=== PATIENT | male | born 1960 | race Caucasian/White ===

== ENCOUNTER 2017-11-28 13:18 | Emergency (ER) | payer OTHER, BC ==
--- NOTE | 2017-11-28 13:30 | EDM.PDOC ---
ED HPI GENERAL MEDICAL PROBLEM - General Chief Complaint: Head Injury Stated Complaint: fell and hit head on cement, shoulder pain Time Seen by Provider: 11/28/17 13:29 Source of Information: Reports: Patient - History of Present Illness INITIAL COMMENTS - FREE TEXT/NARRATIVE: HISTORY AND PHYSICAL: History of present illness: [Patient presents after slipping falling he did strike his head on his vehicle, sure and falling to the ground and struck head on cement, patient had a loss of consciousness reported by on workers up to 2 minutes No fever chills or sweats complains of nausea no vomiting as well as headache Secondary complaint of left shoulder pain also due to the fall Review of systems: As per history of present illness and below otherwise all systems reviewed and negative. Past medical history: As per history of present illness and as reviewed below otherwise noncontributory. Surgical history: As per history of present illness and as reviewed below otherwise noncontributory. Social history: No reported history of drug or alcohol abuse. Family history: As per history of present illness and as reviewed below otherwise noncontributory. Physical exam: HEENT: Atraumatic, normocephalic, pupils reactive, negative for conjunctival pallor or scleral icterus, mucous membranes moist, throat clear, neck supple, nontender, trachea midline. Lungs: Clear to auscultation, breath sounds equal bilaterally, chest nontender. Heart: S1S2, regular, negative for clicks, rubs, or JVD. Abdomen: Soft, nondistended, nontender. Negative for masses or hepatosplenomegaly. Negative for costovertebral tenderness. Pelvis: Stable nontender. Genitourinary: Deferred. Rectal: Deferred. Extremities: Atraumatic, negative for cords or calf pain. Neurovascular unremarkable. Neuro: Awake, alert, oriented. Cranial nerves II through XII unremarkable. Cerebellum unremarkable. Motor and sensory unremarkable throughout. Exam nonfocal. Left shoulder tender with movement appears to be pain in the trapezius distribution x-rays negative for very limited exam due to pain neurovascularly intact no association with head movement Diagnostics: [Head CT no contrast Cervical spine no contrast Left shoulder complete CBC INR ] Therapeutics: [Toradol 60 iv Zofran 8 mg IV ] Impression: [Concussion] with loss of consciousness left shoulder pain Definitive disposition and diagnosis as appropriate pending reevaluation and review of above. Left Shoulder Pain Score (Numeric/FACES): 8 Occipital Headache Pain Score (Numeric/FACES): 8 Neck Pain Score (Numeric/FACES): 8 - Related Data Allergies Allergy/AdvReac Type Severity Reaction Status Date / Time No Known Allergies Allergy Verified 11/28/17 13:32 Home Meds: Home Meds Gabapentin [Neurontin] 300 mg PO BID 11/28/17 [History] Hydrocortisone [Hydrocortisone 2.5% Crm] 1 dose TOP TID 11/28/17 [History] Levothyroxine Sodium [Synthroid] 150 mcg PO DAILY 11/28/17 [History] Propranolol [Inderal LA] 120 mg PO DAILY 11/28/17 [History] atorvaSTATin [Lipitor] 10 mg PO BEDTIME 11/28/17 [History] ED ROS GENERAL - Review of Systems Review Of Systems: ROS reveals no pertinent complaints other than HPI. ED EXAM, HEAD INJURY - Physical Exam Exam: See Below Course - Vital Signs Last Recorded V/S: Last Vital Signs Temp 98.0 F 11/28/17 13:26 Pulse 57 L 11/28/17 14:59 Resp 18 11/28/17 14:59 BP 117/64 11/28/17 14:59 Pulse Ox 94 L 11/28/17 14:59 - Orders/Labs/Meds Orders: Active Orders 24 hr Category Date Time Status Orphenadrine [Norflex] Med 11/28/17 15:00 Active 60 mg IV Q12H Medication Orders Orphenadrine Citrate (Norflex) 60 mg IV Q12H CHETNA Labs: Laboratory Tests 11/28/17 11/28/17 Range/Units 13:50 13:50 WBC 7.65 (4.0-11.0) K/uL RBC 4.57 (4.50-5.90) M/uL Hgb 15.6 (13.0-17.0) g/dL Hct 44.3 (38.0-50.0) % MCV 96.9 (80.0-98.0) fL MCH 34.1 H (27.0-32.0) pg MCHC 35.2 (31.0-37.0) g/dL RDW Std Deviation 48.5 (28.0-62.0) fl RDW Coeff of Abby 14 (11.0-15.0) % Plt Count 179 (150-400) K/uL MPV 11.20 (7.40-12.00) fL Neut % (Auto) 72.4 (48.0-80.0) % Lymph % (Auto) 16.5 (16.0-40.0) % Russell % (Auto) 7.5 (0.0-15.0) % Eos % (Auto) 3.3 (0.0-7.0) % Baso % (Auto) 0.3 (0.0-1.5) % Neut # (Auto) 5.6 (1.4-5.7) K/uL Lymph # (Auto) 1.3 (0.6-2.4) K/uL Russell # (Auto) 0.6 (0.0-0.8) K/uL Eos # (Auto) 0.3 (0.0-0.7) K/uL Baso # (Auto) 0.0 (0.0-0.1) K/uL Nucleated RBC % 0.0 /100WBC Nucleated RBCs # 0 K/uL INR 1.03 Meds: Medications Generic Name Dose Route Start Last Admin Trade Name Freq PRN Reason Stop Dose Admin Orphenadrine Citrate 60 mg 11/28/17 15:00 Norflex IV Q12H CHETNA Discontinued Medications Generic Name Dose Route Start Last Admin Trade Name Freq PRN Reason Stop Dose Admin Ketorolac Tromethamine 30 mg 11/28/17 13:31 11/28/17 13:44 Toradol IVPUSH 11/28/17 13:32 30 mg ONETIME ONE Administration Ondansetron HCl 8 mg 11/28/17 13:31 11/28/17 13:47 Zofran IVPUSH 11/28/17 13:32 8 mg ONETIME ONE Administration Ondansetron HCl Confirm 11/28/17 13:46 11/28/17 13:50 Zofran Administered 11/28/17 13:47 Not Given Dose 4 mg .ROUTE .STK-MED ONE Departure - Departure Time of Disposition: 15:11 Disposition: Home, Self-Care 01 Condition: Good Clinical Impression: Concussion with less than 1 hour loss of consciousness - Discharge Information Referrals: Eric Parsons MD [Primary Care Provider] - Forms: ED Department Discharge Additional Instructions: Medication as prescribed Return if symptoms persist or worsen or new concerning symptoms develop Follow-up with primary care in 2 weeks Ice 20 minute intervals 3 times daily Ice patches may benefit The following information is given to patients seen in the emergency department who are being discharged to home. This information is to outline your options for follow-up care. We provide all patients seen in our emergency department with a follow-up referral. The need for follow-up, as well as the timing and circumstances, are variable depending upon the specifics of your emergency department visit. If you don't have a primary care physician on staff, we will provide you with a referral. We always advise you to contact your personal physician following an emergency department visit to inform them of the circumstance of the visit and for follow-up with them and/or the need for any referrals to a consulting specialist. The emergency department will also refer you to a specialist when appropriate. This referral assures that you have the opportunity for follow-up care with a specialist. All of these measure are taken in an effort to provide you with optimal care, which includes your follow-up. Under all circumstances we always encourage you to contact your private physician who remains a resource for coordinating your care. When calling for follow-up care, please make the office aware that this follow-up is from your recent emergency room visit. If for any reason you are refused follow-up, please contact the [facility] emergency department at and asked to speak to the emergency department charge nurse. - My Orders Last 24 Hours: My Active Orders 11/28/17 15:00 Orphenadrine [Norflex] 60 mg IV Q12H - Assessment/Plan Last 24 Hours: My Active Orders 11/28/17 15:00 Orphenadrine [Norflex] 60 mg IV Q12H
[2017-11-28] MEDS ORDERED: Ondansetron 4 MG/2 ML SDV IVPUSH ONE (13:31)
[2017-11-28] MEDS ORDERED: Ketorolac 30 MG/ML SDV IVPUSH ONE (13:31)
[2017-11-28] MEDS ORDERED: Ondansetron 4 MG/2 ML SDV ONE (13:46)
--- NOTE | 2017-11-28 14:32 | CT ---
CT brain scan Clinical history: Fall on ice with head strike Comparison: MRI scan July 04, 2014 Findings: The ventricles and sulci are normal. There is no evidence of acute mass edema or hemorrhage or space-occupying abnormality. Given the history of head trauma there is no evidence of fluid withi n the sinuses or the mastoid air cells. No calvarial fracture is identified. Impression: No evidence of acute cranial pathology:
--- NOTE | 2017-11-28 14:33 | CR ---
Left shoulder Medical history: Pain Comparison: None The humeral head articulates normally with the glenoid with no fracture or subluxation or periarticul ar calcification. There is very minimal AC joint osteoarthropathy. Impression: No acute abnormality
--- NOTE | 2017-11-28 14:57 | CT ---
CT scan of the cervical spine Clinical history: Fall on ice with head strike Findings: Bony alignment of the cervical spine is normal throughout with scattered marginal osteophyt es anteriorly but no critical central canal narrowing on a bony basis. The facets all align normally. There is no evidence of C-spine fracture or subluxation. Impression: No significant acute findings. Mild diffuse degenerative spondylosis.
== END 2017-11-28 15:20 | disposition home or self-care (01) ==
LOC: MW.ED 13:18
DX: S06.0X1A Concussion with loss of consciousness of 30 minutes or less, initial encounter (principal); M25.512 Pain in left shoulder; Z79.899 Other long term (current) drug therapy; W01.0XXA Fall on same level from slipping, tripping and stumbling without subsequent striking against object, initial encounter
CPT/HCPCS: 36415; 70450; 72125; 73030; 85025; 85610; 96374; 96375; 99284; J1885; J2360; J2405

== ENCOUNTER 2018-05-09 15:57 | Emergency (ER) | payer BC, OTHER ==
[2018-05-09] MEDS ORDERED: Sodium Chloride 0.9% 10 ML Syringe FLUSH PRN (16:11)
[2018-05-09] MEDS ORDERED: Sodium Chloride 0.9% 2.5 ML Syringe FLUSH PRN (16:11)
[2018-05-09] MEDS ORDERED: Sodium Chloride 0.9% 1,000 ML IV SCH (16:15)
--- NOTE | 2018-05-09 16:18 | EDM.PDOC ---
ED HPI GENERAL MEDICAL PROBLEM - General Chief Complaint: Chest Pain Stated Complaint: AMB Time Seen by Provider: 05/09/18 16:09 - History of Present Illness INITIAL COMMENTS - FREE TEXT/NARRATIVE: HISTORY AND PHYSICAL: History of present illness: The patient is a 58-year-old male with a history of hypertension high cholesterol chronic headaches and neuropathy and hypothyroidism who presents via EMS after having a syncopal event while at his job. According to the patient he just didn't feel well all late morning and afternoon and went to lunch with a colleague and said he just didn't feel like himself and he didn't feel good. 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 It is not noted by EMS if he had any seizure activity but on their arrival he was awake alert and complaining mostly of lightheadedness and a headache. He said that the chest discomfort shortness of breath nausea and lightheadedness all came on very quickly and then seemed to surge to his head and now he has no chest pain no shortness of breath no abdominal pain no nausea no vomiting or diarrhea and no neck or back pain and only left shoulder discomfort from his extremities. He doesn't feel weak but he feels somewhat off and confused and states embarrassment with inability to answer simple questions. He says the headache is frontal and is bilateral. He has no neurosensory changes in his left upper extremity. Per the the patient stopped taking his gabapentin the last 1 week because he did not feel it was helping him. She states that he was placed on this for his neuropathy and chronic headaches. He has not Had any upper respiratory symptoms. The patient also tells me that he did spend a lot of time outdoors today dealing with clients and spend some time in a minivan without air conditioning. Review of systems: As per history of present illness and below otherwise all systems reviewed and negative. Past medical history: As per history of present illness and as reviewed below otherwise noncontributory. Surgical history: As per history of present illness and as reviewed below otherwise noncontributory. Social history: No reported history of drug or alcohol abuse. Family history: As per history of present illness and as reviewed below otherwise noncontributory. Physical exam: General: Well-developed well-nourished man who is mildly overweight and moves easily in the ED transfer from cart to bed without assistance. He moves all extremities without any issue except complains of pain at his left shoulder. HEENT: Atraumatic, normocephalic, pupils reactive, no evidence of any facial swelling traumas or defects, EOMs are intact, teeth and bite are intact, negative for conjunctival pallor or scleral icterus, mucous membranes moist, throat clear, neck supple, nontender, trachea midline. There are no scalp swelling or deformities and there are no midline step-offs tenderness defects of the cervical spine Lungs: Clear to auscultation, breath sounds equal bilaterally, chest nontender. There is no ecchymosis erythema crepitus or defects of the chest wall and there is no tenderness Heart: S1S2, regular in rhythm no overt murmurs Abdomen: Soft, nondistended, nontender. Negative for masses or hepatosplenomegaly. Negative for costovertebral tenderness. No rebound or guarding and bowel sounds are hypoactive Pelvis: Stable nontender. No lateral hip tenderness Genitourinary: Deferred. Rectal: Deferred. Extremities: Atraumatic and full range of motion of all extremities with the exception of the left shoulder where there is anterior shoulder tenderness with palpation but there is no visible malalignment defects deformities soft tissue swelling ecchymosis or erythema. All other extremities are nontender and the legs are, negative for cords or calf pain. Neurovascular unremarkable. Neuro: Awake, alert, oriented to person and place but cannot tell me today's date or the year. He states embarrassment that he cannot come up with that answer. Cranial nerves II through XII unremarkable. Cerebellum unremarkable. Motor and sensory unremarkable throughout. Exam nonfocal. Tone is normal throughout and speech is intact Back: There are no midline step-offs in his defects of the thoracic or lumbar spine no posterior rib or posterior pelvis tenderness and no visible evidence of any trauma. Skin: There is no evidence of any overt rashes or lesions turgor is normal and there is no gross diaphoresis Diagnostics: EKG CBC CMP INR TSH troponin UA CT scan of the head chest x-ray and left shoulder x-ray d-dimer CTA of the head and chest Therapeutics: IV O2 monitor IV fluids morphine Zofran The is here at bedside and is providing more history. The patient did have a concussion from head trauma the end of October and says that he was having headaches after that and he does have a history of migraines in the distant past. He follows with Dr. Eric Kitchen and takes the metoprolol for the headaches. She also states that since the concussion he has had some memory loss. Case was discussed at length with and patient at bedside and admission for further evaluation and care of today's events he was offered. Despite my insistence and my concerns he is adamant about going home and the states that there is nothing that is going to change his mind. She says that he has had several concussions in the past and has these headaches and the patient says this headache is coming back. He is aware of my concerns and the need for follow-up. I've advised him if anything changes of swelling that they can return for further care. He accepts my concerns and the risks involved with this. will be with him this evening. Case was discussed with Dr. Haro who had accepted this patient for admission but as the patient is declining he will be notified of this. Impression: Syncopal event, concussion, etiology unclear Definitive disposition and diagnosis as appropriate pending reevaluation and review of above. headache Pain Score (Numeric/FACES): 6 - Related Data Allergies Allergy/AdvReac Type Severity Reaction Status Date / Time No Known Allergies Allergy Verified 11/28/17 13:32 Home Meds: Home Meds Gabapentin [Neurontin] 300 mg PO BID 11/28/17 [History] Levothyroxine Sodium [Synthroid] 150 mcg PO DAILY 11/28/17 [History] Propranolol [Inderal LA] 120 mg PO DAILY 11/28/17 [History] atorvaSTATin [Lipitor] 10 mg PO BEDTIME 11/28/17 [History] Past Medical History Cardiovascular History: Reports: High Cholesterol Neurological History: Reports: Neuropathy, Peripheral Endocrine/Metabolic History: Reports: Hypothyroidism - Infectious Disease History Infectious Disease History: Reports: Chicken Pox, Measles, Mumps Social & Family History - Family History Family Medical History: Noncontributory ED ROS GENERAL - Review of Systems Review Of Systems: ROS reveals no pertinent complaints other than HPI. ED EXAM, GENERAL - Physical Exam Exam: See Below (see dictation) Course - Vital Signs Last Recorded V/S: Last Vital Signs Temp 36.1 C 05/09/18 15:57 Pulse 65 05/09/18 17:50 Resp 18 05/09/18 17:50 BP 111/62 05/09/18 17:50 Pulse Ox 97 05/09/18 17:50 - Orders/Labs/Meds Orders: Active Orders 24 hr Category Date Time Status Blood Glucose Check, Bedside [RC] ONETIME Care 05/09/18 16:10 Active Cardiac Monitoring [RC] . DIRECTED Care 05/09/18 16:10 Active EKG Documentation Completion [RC] STAT Care 05/09/18 16:10 Active Oxygen Therapy, ED [RC] ASDIRECTED Care 05/09/18 16:10 Active Pulse Oximetry [RC] ASDIRECTED Care 05/09/18 16:10 Active Ang Chest [CT] Stat Exams 05/09/18 17:12 Taken CTA Head W & W/O Contrast [Ang Head] [CT] Stat Exams 05/09/18 17:12 Taken UA W/MICROSCOPIC [URIN] Stat Lab 05/09/18 18:28 Ordered Sodium Chloride 0.9% [Normal Saline] 1,000 ml Med 05/09/18 16:15 Active IV ASDIRECTED Sodium Chloride 0.9% [Saline Flush] Med 05/09/18 16:11 Active 10 ml FLUSH ASDIRECTED PRN Sodium Chloride 0.9% [Saline Flush] Med 05/09/18 16:11 Active 2.5 ml FLUSH ASDIRECTED PRN Saline Lock Insert [OM.PC] Stat Oth 05/09/18 16:10 Ordered Medication Orders Sodium Chloride (Normal Saline) 1,000 mls @ 125 mls/hr IV ASDIRECTED CHETNA Last Admin: 05/09/18 16:45 Dose: 125 mls/hr Sodium Chloride (Saline Flush) 10 ml FLUSH ASDIRECTED PRN PRN Reason: Keep Vein Open Sodium Chloride (Saline Flush) 2.5 ml FLUSH ASDIRECTED PRN PRN Reason: Keep Vein Open Labs: Laboratory Tests 05/09/18 05/09/18 05/09/18 Range/Units 16:13 16:13 16:13 WBC 5.85 (4.0-11.0) K/uL RBC 4.02 L (4.50-5.90) M/uL Hgb 14.4 (13.0-17.0) g/dL Hct 41.4 (38.0-50.0) % MCV 103.0 H (80.0-98.0) fL MCH 35.8 H (27.0-32.0) pg MCHC 34.8 (31.0-37.0) g/dL RDW Std Deviation 56.4 (28.0-62.0) fl RDW Coeff of Abby 15 (11.0-15.0) % Plt Count 164 (150-400) K/uL MPV 10.50 (7.40-12.00) fL Neut % (Auto) 65.8 (48.0-80.0) % Lymph % (Auto) 22.9 (16.0-40.0) % [facility] % (Auto) 7.9 (0.0-15.0) % Eos % (Auto) 3.2 (0.0-7.0) % Baso % (Auto) 0.2 (0.0-1.5) % Neut # (Auto) 3.9 (1.4-5.7) K/uL Lymph # (Auto) 1.3 (0.6-2.4) K/uL [facility] # (Auto) 0.5 (0.0-0.8) K/uL Eos # (Auto) 0.2 (0.0-0.7) K/uL Baso # (Auto) 0.0 (0.0-0.1) K/uL Nucleated RBC % 0.0 /100WBC Nucleated RBCs # 0 K/uL INR 1.01 D-Dimer, Quantitative (0.0-0.52) mg/LFEU Sodium 143 (136-148) mmol/L Potassium 4.1 (3.5-5.1) mmol/L Chloride 108 H (98-107) mmol/L Carbon Dioxide 29.1 (21.0-32.0) mmol/L BUN 15 (7.0-18.0) mg/dL Creatinine 1.1 (0.8-1.3) mg/dL Est Cr Clr Drug Dosing 65.25 mL/min Estimated GFR (MDRD) > 60.0 ml/min Glucose 102 (74-106) mg/dL Calcium 8.5 (8.5-10.1) mg/dL Total Bilirubin 0.5 (0.2-1.0) mg/dL AST 26 (15-37) IU/L ALT 33 (14-63) IU/L Alkaline Phosphatase 66 (46-116) U/L Creatine Kinase (26-308) U/L Troponin I < 0.050 (0.000-0.056) ng/mL Total Protein 7.0 (6.4-8.2) g/dL Albumin 3.8 (3.4-5.0) g/dL Globulin 3.2 (2.0-3.5) g/dL Albumin/Globulin Ratio 1.2 L (1.3-2.8) TSH 3rd Generation 0.14 L (0.36-3.74) uIU/mL Urine Color Urine Appearance Urine pH (5.0-8.0) Ur Specific [place] (1.001-1.035) Urine Protein (NEGATIVE) mg/dL Urine Glucose (UA) (NEGATIVE) mg/dL Urine Ketones (NEGATIVE) mg/dL Urine Occult Blood (NEGATIVE) Urine Nitrite (NEGATIVE) Urine Bilirubin (NEGATIVE) Urine Urobilinogen (<2.0) EU/dL Ur Leukocyte Esterase (NEGATIVE) Urine RBC (0-2/HPF) Urine WBC (0-5/HPF) Ur Epithelial Cells (NONE-FEW) Urine Bacteria (NEGATIVE) 05/09/18 05/09/18 05/09/18 Range/Units 16:13 16:13 18:28 WBC (4.0-11.0) K/uL RBC (4.50-5.90) M/uL Hgb (13.0-17.0) g/dL Hct (38.0-50.0) % MCV (80.0-98.0) fL MCH (27.0-32.0) pg MCHC (31.0-37.0) g/dL RDW Std Deviation (28.0-62.0) fl RDW Coeff of Abby (11.0-15.0) % Plt Count (150-400) K/uL MPV (7.40-12.00) fL Neut % (Auto) (48.0-80.0) % Lymph % (Auto) (16.0-40.0) % [facility] % (Auto) (0.0-15.0) % Eos % (Auto) (0.0-7.0) % Baso % (Auto) (0.0-1.5) % Neut # (Auto) (1.4-5.7) K/uL Lymph # (Auto) (0.6-2.4) K/uL [facility] # (Auto) (0.0-0.8) K/uL Eos # (Auto) (0.0-0.7) K/uL Baso # (Auto) (0.0-0.1) K/uL Nucleated RBC % /100WBC Nucleated RBCs # K/uL INR D-Dimer, Quantitative 0.79 H (0.0-0.52) mg/LFEU Sodium (136-148) mmol/L Potassium (3.5-5.1) mmol/L Chloride (98-107) mmol/L Carbon Dioxide (21.0-32.0) mmol/L BUN (7.0-18.0) mg/dL Creatinine (0.8-1.3) mg/dL Est Cr Clr Drug Dosing mL/min Estimated GFR (MDRD) ml/min Glucose (74-106) mg/dL Calcium (8.5-10.1) mg/dL Total Bilirubin (0.2-1.0) mg/dL AST (15-37) IU/L ALT (14-63) IU/L Alkaline Phosphatase (46-116) U/L Creatine Kinase 96 (26-308) U/L Troponin I (0.000-0.056) ng/mL Total Protein (6.4-8.2) g/dL Albumin (3.4-5.0) g/dL Globulin (2.0-3.5) g/dL Albumin/Globulin Ratio (1.3-2.8) TSH 3rd Generation (0.36-3.74) uIU/mL Urine Color YELLOW Urine Appearance CLEAR Urine pH 6.5 (5.0-8.0) Ur Specific [place] 1.010 (1.001-1.035) Urine Protein NEGATIVE (NEGATIVE) mg/dL Urine Glucose (UA) NEGATIVE (NEGATIVE) mg/dL Urine Ketones NEGATIVE (NEGATIVE) mg/dL Urine Occult Blood NEGATIVE (NEGATIVE) Urine Nitrite NEGATIVE (NEGATIVE) Urine Bilirubin NEGATIVE (NEGATIVE) Urine Urobilinogen 1.0 (<2.0) EU/dL Ur Leukocyte Esterase NEGATIVE (NEGATIVE) Urine RBC 0-1 (0-2/HPF) Urine WBC 0-1 (0-5/HPF) Ur Epithelial Cells RARE (NONE-FEW) Urine Bacteria RARE (NEGATIVE) Meds: Medications Generic Name Dose Route Start Last Admin Trade Name Freq PRN Reason Stop Dose Admin Sodium Chloride 1,000 mls @ 125 mls/hr 05/09/18 16:15 05/09/18 16:45 Normal Saline IV 125 mls/hr ASDIRECTED CHETNA Administration Sodium Chloride 10 ml 05/09/18 16:11 Saline Flush FLUSH ASDIRECTED PRN Keep Vein Open Sodium Chloride 2.5 ml 05/09/18 16:11 Saline Flush FLUSH ASDIRECTED PRN Keep Vein Open Discontinued Medications Generic Name Dose Route Start Last Admin Trade Name Freq PRN Reason Stop Dose Admin Iopamidol 100 ml 05/09/18 18:03 05/09/18 18:04 Isovue-370 (76%) IVPUSH 05/09/18 18:04 100 ml ONETIME STA Administration Morphine Sulfate 4 mg 05/09/18 16:43 05/09/18 16:50 Morphine IVPUSH 05/09/18 16:44 4 mg ONETIME ONE Administration Ondansetron HCl 4 mg 05/09/18 16:43 05/09/18 16:50 Zofran IVPUSH 05/09/18 16:44 4 mg ONETIME ONE Administration Departure - Departure Time of Disposition: 19:13 Disposition: Home, Self-Care 01 Condition: Good Clinical Impression: Syncope Qualifiers: Syncope type: unspecified Qualified Code(s): R55 - Syncope and collapse - Discharge Information Referrals: PCP,None [Primary Care Provider] - Forms: ED Department Discharge Additional Instructions: The following information is given to patients seen in the emergency department who are being discharged to home. This information is to outline your options for follow-up care. We provide all patients seen in our emergency department with a follow-up referral. The need for follow-up, as well as the timing and circumstances, are variable depending upon the specifics of your emergency department visit. If you don't have a primary care physician on staff, we will provide you with a referral. We always advise you to contact your personal physician following an emergency department visit to inform them of the circumstance of the visit and for follow-up with them and/or the need for any referrals to a consulting specialist. The emergency department will also refer you to a specialist when appropriate. This referral assures that you have the opportunity for followup care with a specialist. All of these measure are taken in an effort to provide you with optimal care, which includes your followup. Under all circumstances we always encourage you to contact your private physician who remains a resource for coordinating your care. When calling for followup care, please make the office aware that this follow-up is from your recent emergency room visit. If for any reason you are refused follow-up, please contact the [facility] emergency department at and ask to speak to the emergency department charge nurse. [facility] Primary care- Internal Medicine and Family [address] [address] Which hydration and rest. Use [id number] meds for headache and please contact a provider for further care and evaluation in the next 1-2 days. Return to ER as needed and as discussed - My Orders Last 24 Hours: My Active Orders 05/09/18 16:10 Blood Glucose Check, Bedside [RC] ONETIME Cardiac Monitoring [RC] . DIRECTED EKG Documentation Completion [RC] STAT Oxygen Therapy, ED [RC] ASDIRECTED Pulse Oximetry [RC] ASDIRECTED Saline Lock Insert [OM.PC] Stat 05/09/18 16:11 Sodium Chloride 0.9% [Saline Flush] 10 ml FLUSH ASDIRECTED PRN Sodium Chloride 0.9% [Saline Flush] 2.5 ml FLUSH ASDIRECTED PRN 05/09/18 16:15 Sodium Chloride 0.9% [Normal Saline] 1,000 ml IV ASDIRECTED 05/09/18 17:12 Ang Chest [CT] Stat CTA Head W & W/O Contrast [Ang Head] [CT] Stat 05/09/18 18:28 UA W/MICROSCOPIC [URIN] Stat - Assessment/Plan Last 24 Hours: My Active Orders 05/09/18 16:10 Blood Glucose Check, Bedside [RC] ONETIME Cardiac Monitoring [RC] . DIRECTED EKG Documentation Completion [RC] STAT Oxygen Therapy, ED [RC] ASDIRECTED Pulse Oximetry [RC] ASDIRECTED Saline Lock Insert [OM.PC] Stat 05/09/18 16:11 Sodium Chloride 0.9% [Saline Flush] 10 ml FLUSH ASDIRECTED PRN Sodium Chloride 0.9% [Saline Flush] 2.5 ml FLUSH ASDIRECTED PRN 05/09/18 16:15 Sodium Chloride 0.9% [Normal Saline] 1,000 ml IV ASDIRECTED 05/09/18 17:12 Ang Chest [CT] Stat CTA Head W & W/O Contrast [Ang Head] [CT] Stat 05/09/18 18:28 UA W/MICROSCOPIC [URIN] Stat
--- NOTE | 2018-05-09 16:40 | CR ---
EXAMINATION: Portable chest radiograph. HISTORY: Shortness of breath. FINDINGS: The trachea is midline. The cardiomediastinal silhouette is within normal limits. Trace left basilar atelectasis and/or infiltrate. No pleural effusion or pneumothorax. Osseous structures appear unremar kable. IMPRESSION: 1. Trace left basilar atelectasis and/or infiltrate.
[2018-05-09] MEDS ORDERED: Morphine 2 MG/ML Syringe IVPUSH ONE (16:43)
[2018-05-09] MEDS ORDERED: Ondansetron 4 MG/2 ML SDV IVPUSH ONE (16:43)
--- NOTE | 2018-05-09 16:46 | CT ---
EXAMINATION: Non contrast CT head. Coronal and sagittal reformats. HISTORY: Pain FINDINGS: No evidence of intra or extra axial hemorrhage, mass, midline shift, hydrocephalus or edema. No hypoattenuation changes in the major vascular territories to suggest acute infarct. No abnormal intracranial calcifications are detected. No evidence of substantial vascular calcificat ions. Paranasal sinuses and mastoid air cells are well aerated without substantial findings. Pituitary fossa appears unremarkable. Calvarium is intact. No evidence of skull fracture. IMPRESSION: No acute intracranial findings.
--- NOTE | 2018-05-09 16:56 | CR ---
EXAMINATION: Left shoulder HISTORY: Pain COMPARISON: 11/28/2017 TECHNIQUE: 3 views FINDINGS/IMPRESSION: There is no acute osseous abnormality, dislocation, or fracture. Superior manage ment of the scapula appears interrupted, however appears intact on the comparison radiograph and like ly artifactual. Bone mineralization and joint spaces are otherwise preserved.
[2018-05-09 17:39] LABS: CHLORIDE,CL 108 mmol/L (98-107); SODIUM,NA 143 mmol/L (136-148)
[2018-05-09] MEDS ORDERED: Iopamidol 755 Mg/ML 100 ML Bottle IVPUSH STA (18:03)
--- NOTE | 2018-05-10 12:54 | CT ---
EXAM DATE: 05/09/18 PATIENT'S AGE: 58 Patient: MICHAEL GARRETT Facility: [place], [place] Site . Site : 1960 Study: CT Head Angio [id number]/10/2018 6:20:00 PM Ordering Physician: Ike Scherer Final Report: INDICATION: Severe headache. TECHNIQUE: CTA of the head was performed after the administration of intravenous contrast. Multiplanar Maximum Intensity Projections (MIPs) were created on a separate workstation at the request of the referring physician. COMPARISON: None available FINDINGS: Angiographic findings: There is no aneurysm or vascular malformation. There is moderate atherosclerosis of the carotid siphons without significant stenosis. An anterior communicating artery is well visualized and is normal. The anterior and middle cerebral arteries are unremarkable. The vertebral arteries are codominant. The intracranial posterior circulation is unremarkable. Deep cerebral veins and dural venous sinuses are unremarkable. Non-angiographic findings: Ventricles are of normal size and morphology. No mass effect or midline shift is present. The visualized portions of the orbits are normal. The paranasal sinuses and mastoid air cells are clear. There are no suspicious lytic or blastic lesions. IMPRESSION: 1. No cerebral aneurysm 2. No significant stenosis or occlusion of the intracranial arteries Please note that all CT scans at this facility use dose modulation, iterative reconstruction, and/or weight-based dosing when appropriate to reduce radiation dose to as low as reasonably achievable. Dictated by Brooks Curry MD @ May 09 2018 8:47PM (Electronic Signature) Report Signed by Proxy. IVY
--- NOTE | 2018-05-10 12:55 | CT ---
EXAM DATE: 05/09/18 PATIENT'S AGE: 58 Patient: MICHAEL GARRETT Facility: [place], [place] Site . Site : 1960 Study: CT Chest Angio [id number]/10/2018 6:28:24 PM Ordering Physician: Ike Scherer Final Report: INDICATION: Elevated d-dimer TECHNIQUE: CT chest with i.v. contrast using pulmonary angiographic technique. Coronal and sagittal reformats were obtained. CONTRAST: Intravenous COMPARISON: None FINDINGS: Severe degradation of image quality noted due to patient motion artifacts and beam hardening artifact from skin with patient`s arms down by the sides. Cardiovascular: No CT evidence of central pulmonary embolism seen. The 3rd and higher order pulmonary vessels cannot be evaluated due to suboptimal contrast bolus. The heart has an unremarkable appearance and size. Ectasia of the ascending aorta is noted measuring 3.5 cm. Mediastinum: No mass or adenopathy seen. Lungs: Minimal bibasilar ground-glass atelectasis is present in both lower lobes. Pleura and pericardium: No sign of pleural effusion seen. No significant pericardial effusion is present. Chest wall and axilla: No mass or adenopathy seen. Bones: Unremarkable for age. Upper abdomen: Unremarkable. IMPRESSION: 1. No CT evidence of central pulmonary embolism seen. The 3rd and higher order pulmonary vessels cannot be evaluated due to suboptimal contrast bolus, beam hardening artifact, and motion artifacts. The findings and severe limitations of the exam were discussed with Dr. Ramires at 6:53 PM. Dictated by Jerardo Wong MD @ 05/09/2018 6:53:13 PM Please note that all CT scans at this facility use dose modulation, iterative reconstruction, and/or weight-based dosing when appropriate to reduce radiation dose to as low as reasonably achievable. Dictated by: Jerardo Wong MD @ 05/09/2018 18:53:41 (Electronic Signature) Report Signed by Proxy. [facility]
== END 2018-05-09 19:30 | disposition home or self-care (01) ==
LOC: MW.ED 15:57
DX: R55 Syncope and collapse (principal); I10 Essential (primary) hypertension
CPT/HCPCS: 36415; 70450; 70496; 71045; 71275; 73030; 80053; 81001; 82550; 84443; 84484; 85025; 85379; 85610; 93005; 96361; 96374; 96375; 99285; J2270; J2405; J7040; Q9967

== ENCOUNTER 2020-01-14 10:35 | Observation (INO) | payer BC ==
--- NOTE | 2020-01-14 10:42 | EDM.PDOC ---
ED HPI GENERAL MEDICAL PROBLEM - General Chief Complaint: General Stated Complaint: FALL/ HEAD INJURY Time Seen by Provider: 01/14/20 10:35 Source of Information: Reports: Patient, EMS History Limitations: Reports: No Limitations - History of Present Illness INITIAL COMMENTS - FREE TEXT/NARRATIVE: This 59 year old male slipped on ice falling backwards hitting the back of his head. LOC for less than 30 minutes according to the EMT's. He also complains of lower back pain as well as neck pain. He denies any other problems. He states that he is on Aspirin but is not on blood thinners. Onset: Sudden Location: Reports: Head, Back Quality: Reports: Dull head Pain Score (Numeric/FACES): 8 neck Pain Score (Numeric/FACES): 8 low back Pain Score (Numeric/FACES): 8 - Related Data Allergies Allergy/AdvReac Type Severity Reaction Status Date / Time No Known Allergies Allergy Verified 01/14/20 10:40 Home Meds: Home Meds Levothyroxine Sodium [Synthroid] 150 mcg PO DAILY 11/28/17 [History] Propranolol [Inderal LA] 120 mg PO DAILY 11/28/17 [History] atorvaSTATin [Lipitor] 10 mg PO BEDTIME 11/28/17 [History] Aspirin 81 mg PO DAILY 01/14/20 [History] Celecoxib [CeleBREX] 200 mg PO DAILY 01/14/20 [History] Pregabalin [Lyrica] 75 mg PO BID 01/14/20 [History] Past Medical History Cardiovascular History: Reports: High Cholesterol Neurological History: Reports: Neuropathy, Peripheral Endocrine/Metabolic History: Reports: Hypothyroidism - Infectious Disease History Infectious Disease History: Reports: Chicken Pox, Measles, Mumps Social & Family History - Family History Family Medical History: Noncontributory - Caffeine Use Caffeine Use: Reports: Coffee ED ROS GENERAL - Review of Systems Review Of Systems: See Below Constitutional: Reports: No Symptoms HEENT: Reports: No Symptoms Respiratory: Reports: No Symptoms Cardiovascular: Reports: No Symptoms Endocrine: Reports: No Symptoms GI/Abdominal: Reports: No Symptoms : Reports: No Symptoms Musculoskeletal: Reports: No Symptoms Skin: Reports: No Symptoms Neurological: Reports: Headache, Other (back pain in the lower area) ED EXAM, GENERAL - Physical Exam Exam: See Below Exam Limited By: No Limitations General Appearance: Alert, WD/WN, No Apparent Distress Eye Exam: Bilateral Eye: EOMI, Normal Fundi, Normal Inspection, PERRL Ears: Normal External Exam, Normal Canal, Hearing Grossly Normal, Normal TMs Ear Exam: Bilateral Ear: Auricle Normal, Canal Normal, TM normal Nose: Normal Inspection, Normal Mucosa, No Blood Throat/Mouth: Normal Inspection, Normal Lips, Normal Teeth, Normal Gums, Normal Oropharynx, Normal Voice, No Airway Compromise Head: Other (swelling and tenderness noted in the occipital area). No: Facial Swelling, Facial Tenderness, Sinus Tenderness Neck: Normal Inspection, Non-Tender, Other (After CT of the cervical spine was negative, the neck was re-evaluated in ROM is intact) Respiratory/Chest: No Respiratory Distress, Lungs Clear, Normal Breath Sounds, No Accessory Muscle Use, Chest Non-Tender Cardiovascular: Normal Peripheral Pulses, Regular Rate, Rhythm, No Edema, No Gallop, No JVD, No Murmur Peripheral Pulses: 3+: Carotid (L), Carotid (R), Radial (L), Radial (R), Dorsalis Pedis (L), Dorsalis Pedis (R) GI/Abdominal: Normal Bowel Sounds, Soft, Non-Tender, No Organomegaly, No Distention, No Abnormal Bruit, No Mass (Male) Exam: Deferred Rectal (Males) Exam: Deferred Back Exam: Normal Inspection, Decreased Range of Motion, Other (Tenderness noted over L2-S1 at the midline. No spasms noted.). No: CVA Tenderness (L), CVA Tenderness (R) Extremities: Normal Inspection, Normal Range of Motion, Non-Tender, Normal Capillary Refill, No Pedal Edema Neurological: Alert, Oriented, CN II-XII Intact, Normal Cognition, Normal Reflexes, No Motor/Sensory Deficits Skin Exam: Warm, Dry, Intact, Normal Color, No Rash Lymphatic: No Adenopathy Course - Vital Signs Text/Narrative:: I reviewed all of the patients diagnostic test. 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 He will be admitted to OBS/TELE. The patient agrees with the admission plan. Last Recorded V/S: Last Vital Signs Temp Pulse 57 L 01/14/20 11:22 Resp 19 01/14/20 11:22 BP 136/86 01/14/20 11:04 Pulse Ox 96 01/14/20 11:22 - Orders/Labs/Meds Orders: Active Orders 24 hr Category Date Time Status UA W/ABHIJIT RFLX IF INDICATED [URIN] Stat Lab 01/14/20 10:40 Ordered Labs: Laboratory Tests 01/14/20 01/14/20 01/14/20 Range/Units 10:32 10:32 10:32 WBC 6.50 (4.0-11.0) K/uL RBC 4.77 (4.50-5.90) M/uL Hgb 15.1 (13.0-17.0) g/dL Hct 44.8 (38.0-50.0) % MCV 93.9 (80.0-98.0) fL MCH 31.7 (27.0-32.0) pg MCHC 33.7 (31.0-37.0) g/dL RDW Std Deviation 47.3 (28.0-62.0) fl RDW Coeff of Abby 14 (11.0-15.0) % Plt Count 165 (150-400) K/uL MPV 11.50 (7.40-12.00) fL Neut % (Auto) 70.4 (48.0-80.0) % Lymph % (Auto) 17.4 (16.0-40.0) % [place] % (Auto) 8.8 (0.0-15.0) % Eos % (Auto) 2.9 (0.0-7.0) % Baso % (Auto) 0.5 (0.0-1.5) % Neut # (Auto) 4.6 (1.4-5.7) K/uL Lymph # (Auto) 1.1 (0.6-2.4) K/uL [place] # (Auto) 0.6 (0.0-0.8) K/uL Eos # (Auto) 0.2 (0.0-0.7) K/uL Baso # (Auto) 0.0 (0.0-0.1) K/uL Nucleated RBC % 0.0 /100WBC Nucleated RBCs # 0 K/uL INR 0.98 Sodium 143 (136-148) mmol/L Potassium 4.9 (3.5-5.1) mmol/L Chloride 106 (98-107) mmol/L Carbon Dioxide 27.5 (21.0-32.0) mmol/L BUN 19 H (7.0-18.0) mg/dL Creatinine 1.1 (0.8-1.3) mg/dL Est Cr Clr Drug Dosing TNP Estimated GFR (MDRD) > 60.0 ml/min Glucose 99 (74-106) mg/dL Calcium 9.1 (8.5-10.1) mg/dL Magnesium 2.1 (1.8-2.4) mg/dL Total Bilirubin 0.4 (0.2-1.0) mg/dL AST 19 (15-37) IU/L ALT 27 (14-63) IU/L Alkaline Phosphatase 88 (46-116) U/L Total Protein 7.1 (6.4-8.2) g/dL Albumin 3.8 (3.4-5.0) g/dL Globulin 3.3 (2.6-4.0) g/dL Albumin/Globulin Ratio 1.2 (0.9-1.6) Meds: Medications Discontinued Medications Generic Name Dose Route Start Last Admin Trade Name Parthq PRN Reason Stop Dose Admin Meclizine HCl 25 mg 01/14/20 11:01 01/14/20 11:22 Antivert PO 01/14/20 11:02 25 mg ONETIME ONE Administration Ondansetron HCl 4 mg 01/14/20 11:00 01/14/20 11:22 Zofran IVPUSH 01/14/20 11:01 Not Given ONETIME ONE Departure - Departure Time of Disposition: 12:07 Disposition: Refer to Observation Condition: Fair Clinical Impression: Blunt head trauma Qualifiers: Encounter type: initial encounter Qualified Code(s): S09.8XXA - Other specified injuries of head, initial encounter Concussion Qualifiers: Encounter type: initial encounter Loss of consciousness presence/duration: with LOC of 30 min or less Qualified Code(s): S06.0X1A - Concussion with loss of consciousness of 30 minutes or less, initial encounter Back contusion Qualifiers: Encounter type: initial encounter Laterality: unspecified laterality Qualified Code(s): S20.229A - Contusion of unspecified back wall of thorax, initial encounter - Discharge Information *PRESCRIPTION DRUG MONITORING PROGRAM REVIEWED*: Yes *COPY OF PRESCRIPTION DRUG MONITORING REPORT IN PATIENT AMITA: Yes Forms: ED Department Discharge Sepsis Event Note - Focused Exam Vital Signs: Vital Signs Pulse Resp BP Pulse Ox 01/14/20 11:22 57 L 19 96 01/14/20 11:04 55 L 25 H 136/86 100 Date Exam was Performed: 01/14/20 Time Exam was Performed: 12:06 - My Orders Last 24 Hours: My Active Orders 01/14/20 10:40 UA W/ABHIJIT RFLX IF INDICATED [URIN] Stat - Assessment/Plan Last 24 Hours: My Active Orders 01/14/20 10:40 UA W/ABHIJIT RFLX IF INDICATED [URIN] Stat
[2020-01-14] MEDS ORDERED: Ondansetron 4 MG/2 ML SDV IVPUSH ONE (11:00)
[2020-01-14] MEDS ORDERED: Meclizine 25 MG Tab PO ONE (11:01)
--- NOTE | 2020-01-14 11:26 | CT ---
CT cervical spine Technique: Multiple axial sections were obtained from above C1 inferiorly to the bottom of T2. Reconstructed sagittal and coronal images were obtained. Comparison: Prior CT cervical spine study of 11/28/17. Findings: Fairly severe disc space narrowing is noted at C6-C7. Anterior osteophytes are seen throughout the cervical spine. Posterior osteophytes are noted from C3-C4 through T1-T2. Degenerative change is noted between the dens and anterior arch of C1. Degenerative spurring is noted within the uncovertebral joints at C6-C7. No fracture or subluxation is seen. Mild neural foraminal stenosis is seen bilaterally at C6-C7. Other neural foramina are patent. No central canal stenosis is seen. Mild scattered degenerative apophyseal change is seen throughout cervical spine. Impression: 1. Diffuse degenerative change. 2. Nothing acute is seen on CT study of the cervical spine. Diagnostic code #2 Study was dictated in MDT
--- NOTE | 2020-01-14 11:30 | CT ---
Head CT Technique: Multiple axial sections through the brain were obtained. Intravenous contrast was not utilized. Comparison: Previous head CT study of 05/09/18. Findings: Ventricles along with basal cisterns and sulci over the convexities are within normal limits for the patient's age. No abnormal parenchymal densities are seen. No evidence of intracranial hemorrhage. No midline shift or mass effect is seen. Moderate mucosal thickening and possible fluid within the left maxillary sinus is noted. Mastoid sinuses show nothing acute. No acute calvarial abnormality is appreciated. Impression: 1. Mucosal thickening and possible air-fluid level within the left maxillary sinus. Difficult to exclude acute sinusitis. 2. No acute intracranial abnormality is appreciated. Diagnostic code #3 Study was dictated in MDT
--- NOTE | 2020-01-14 11:36 | CT ---
CT lumbar spine Technique: Multiple axial sections were obtained from above the T11-T12 disc through the L5-S1 disc. Reconstructed coronal and sagittal images were obtained. Comparison: No prior lumbar spine imaging is available. Findings: T11-T12: Moderate disc space narrowing is noted with endplate osteophytes. T12-L1: Posterior disc space narrowing is noted. Endplate osteophytes are seen anteriorly. L1-L2: Posterior disc space narrowing is seen. Endplate osteophytes are seen anteriorly. L2-L3: Posterior disc space narrowing is seen. Very slight circumferential disc bulge is present. Posterior disc maintains a concave margin. Mild degenerative apophyseal change is seen. Anterior endplate osteophytes are seen. L3-L4: Mild circumferential disc bulge is seen. Moderate degenerative apophyseal change is noted. Mild central canal stenosis is seen. Endplate osteophytes are seen. L4-L5: Disc space narrowing with vacuum disc phenomena. Posterior bony spur is noted. Circumferential disc bulge is seen. Moderate degenerative apophyseal change is noted with thickening of the ligamentum flavum. Findings cause mild to moderate central canal stenosis. Bilateral neural foraminal stenosis is noted. Nerve roots appear to exit without definite compromise. Minimal anterior endplate osteophytes are seen. L5-S1: Physiologic disc bulge is seen posteriorly. Severe degenerative apophyseal change is noted. No central canal stenosis is seen. No neural foramina appear to be patent where the nerve roots exit. Degenerative spurring is noted anteriorly within the sacroiliac joints. No fracture is seen. No abnormal subluxation is identified. Impression: 1. Degenerative change as noted above. 2. No acute fracture or acute subluxation is seen. Diagnostic code #2 Study was dictated in MDT
--- NOTE | 2020-01-14 11:36 | CR ---
Chest: Portable view of the chest was obtained. Comparison: Prior chest x-ray of 05/09/18. Heart size and mediastinum are normal. Lungs are clear with no acute parenchymal change. Bony structures are grossly intact. Impression: 1. Nothing acute is seen on portable chest x-ray. Diagnostic code #1 Study was dictated in MDT
[2020-01-14 11:54] LABS: BLOOD UREA NITROGEN,BUN 19 mg/dL (7.0-18.0); CARBON DIOXIDE,CO2 27.5 mmol/L (21.0-32.0); CHLORIDE,CL 106 mmol/L (98-107); GLUCOSE RANDOM 99 mg/dL (74-106); POTASSIUM,K 4.9 mmol/L (3.5-5.1); SODIUM,NA 143 mmol/L (136-148)
[2020-01-14] MEDS ORDERED: Sodium Chloride 0.9% 2.5 ML Syringe FLUSH PRN (13:24)
[2020-01-14] MEDS ORDERED: Ondansetron 4 MG/2 ML SDV IVPUSH PRN (13:24)
[2020-01-14] MEDS ORDERED: Acetaminophen 325 MG Tab PO PRN (13:24)
[2020-01-14] MEDS ORDERED: Ibuprofen 400 MG Tab PO PRN (13:37)
--- NOTE | 2020-01-14 13:52 | PCM.HP.2 ---
H&P History of Present Illness - General Date of Service: 01/14/20 Admit Problem/Dx: Admission Diagnosis/Problem Admission Diagnosis/Problem Fall with LOC after hitting head Source of Information: Patient History Limitations: Reports: No Limitations - History of Present Illness Initial Comments - Free Text/Narative: Ths 59 year old male with pmh of complicated migraines, concussion x 8 from falls and HLD presented to the ED via EMS after he was found on the ground at work. 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 He did lose consciousness, he is unsure of how long. Reports a bystander found him. He denies any lightheadedness or dizziness prior to falling, he reports he simply slipped. He is now reporting purple floaters in his visual field, no loss of vision or blurred vision. Reports "pounding" headache. No neck pain, reports his tailbone and low back hurt. He denies trouble ambulating or any pain with ambulation in limbs. He denies recent illness and has otherwise felt fine. No chest pain or palpitations. No dyspnea or cough. No abdominal pain or urinary concerns. He reports he drinks once a week on bowling nights, he denies tobacco abuse. He reports occasional marijuana use. In the ED labwork WNL. HR noted to be in 50s, which he reports is normal for him due to medications. CT of head negative, shows possible sinusitis, Cervical spine CT negative for acute process, Lumbar spine reveals chronic changes, no overt fractures or acute process. CXr negative. He will be admitted secondary to mechanical fall head trauma and secondary concussion. head Pain Score (Numeric/FACES): 8 neck Pain Score (Numeric/FACES): 8 low back Pain Score (Numeric/FACES): 8 - Related Data Allergies/Adverse Reactions: Allergies Allergy/AdvReac Type Severity Reaction Status Date / Time No Known Allergies Allergy Verified 01/14/20 13:35 Home Medications: Home Meds Levothyroxine Sodium [Synthroid] 150 mcg PO DAILY 11/28/17 [History] Propranolol [Inderal LA] 120 mg PO DAILY 11/28/17 [History] atorvaSTATin [Lipitor] 10 mg PO BEDTIME 11/28/17 [History] Aspirin 81 mg PO DAILY 01/14/20 [History] Celecoxib [CeleBREX] 200 mg PO DAILY 01/14/20 [History] Pregabalin [Lyrica] 75 mg PO BID 01/14/20 [History] Past Medical History Cardiovascular History: Reports: High Cholesterol. Denies: Afib, Blood Clots/ VTE/DVT, TN, Stents Respiratory History: Reports: None. Denies: COPD, SOB Gastrointestinal History: Reports: None Neurological History: Reports: Migraines (complicated migraines), Neuropathy, Peripheral Psychiatric History: Reports: None Endocrine/Metabolic History: Reports: Hypothyroidism, Obesity/BMI 30+ - Infectious Disease History Infectious Disease History: Reports: Chicken Pox, Measles, Mumps Social & Family History - Family History Family Medical History: Noncontributory - Tobacco Use Smoking Status *Q: Unknown Ever Smoked - Caffeine Use Caffeine Use: Reports: Coffee - Alcohol Use Alcohol Use Frequency: Rarely, Socially - Recreational Drug Use Recreational Drug Type: Reports: Marijuana/Hashish Recreational Drug Use Frequency: Socially - Living Situation & Occupation Living situation: Reports: Occupation: Employed H&P Review of Systems - Review of Systems: Review Of Systems: See Below General: Reports: No Symptoms. Denies: Fever, Chills, Malaise, Weakness HEENT: Reports: Headaches, Visual Changes (purple floaters). Denies: Sinus Congestion Pulmonary: Reports: No Symptoms. Denies: Shortness of Breath Cardiovascular: Reports: No Symptoms. Denies: Chest Pain Gastrointestinal: Reports: No Symptoms. Denies: Abdominal Pain, Black Stool, Bloody Stool, Diarrhea, Nausea, Vomiting Genitourinary: Reports: No Symptoms. Denies: Dysuria, Frequency Musculoskeletal: Reports: Back Pain (lower back pain) Psychiatric: Reports: No Symptoms Neurological: Reports: No Symptoms Hematologic/Lymphatic: Reports: No Symptoms Immunologic: Reports: No Symptoms Exam - Exam Exam: See Below - Vital Signs Vital Signs: Last Vital Signs Temp 97.7 F 01/14/20 13:01 Pulse 54 L 01/14/20 13:01 Resp 16 01/14/20 13:01 BP 149/84 H 01/14/20 13:01 Pulse Ox 95 01/14/20 13:01 Orthostatic Blood Pressure [ 109/54 Sitting] - Exam General: Alert, Oriented, Cooperative Lungs: Clear to Auscultation, Normal Respiratory Effort Cardiovascular: Regular Rate, Regular Rhythm GI/Abdominal Exam: Normal Bowel Sounds, Soft, Non-Tender Back Exam: Normal Inspection, Full Range of Motion, Other (lower back SI joint and muscular tenderness) Extremities: Normal Inspection, Normal Range of Motion, Non-Tender, No Pedal Edema Neurological: Cranial Nerves Intact, Reflexes Equal Bilateral Neuro Extensive - Mental Status: Alert, Oriented x3 Neuro Extensive - Motor, Sensory, Reflexes: CN II-XII Intact, Normal Gait, Normal Reflexes Psychiatric: Alert, Normal Affect, Normal Mood - Patient Data Lab Results Last 24 hrs: Laboratory Results - last 24 hr 01/14/20 01/14/20 01/14/20 Range/Units 10:32 10:32 10:32 WBC 6.50 (4.0-11.0) K/uL RBC 4.77 (4.50-5.90) M/uL Hgb 15.1 (13.0-17.0) g/dL Hct 44.8 (38.0-50.0) % MCV 93.9 (80.0-98.0) fL MCH 31.7 (27.0-32.0) pg MCHC 33.7 (31.0-37.0) g/dL RDW Std Deviation 47.3 (28.0-62.0) fl RDW Coeff of Abby 14 (11.0-15.0) % Plt Count 165 (150-400) K/uL MPV 11.50 (7.40-12.00) fL Neut % (Auto) 70.4 (48.0-80.0) % Lymph % (Auto) 17.4 (16.0-40.0) % [place] % (Auto) 8.8 (0.0-15.0) % Eos % (Auto) 2.9 (0.0-7.0) % Baso % (Auto) 0.5 (0.0-1.5) % Neut # (Auto) 4.6 (1.4-5.7) K/uL Lymph # (Auto) 1.1 (0.6-2.4) K/uL [place] # (Auto) 0.6 (0.0-0.8) K/uL Eos # (Auto) 0.2 (0.0-0.7) K/uL Baso # (Auto) 0.0 (0.0-0.1) K/uL Nucleated RBC % 0.0 /100WBC Nucleated RBCs # 0 K/uL INR 0.98 Sodium 143 (136-148) mmol/L Potassium 4.9 (3.5-5.1) mmol/L Chloride 106 (98-107) mmol/L Carbon Dioxide 27.5 (21.0-32.0) mmol/L BUN 19 H (7.0-18.0) mg/dL Creatinine 1.1 (0.8-1.3) mg/dL Est Cr Clr Drug Dosing TNP Estimated GFR (MDRD) > 60.0 ml/min Glucose 99 (74-106) mg/dL Calcium 9.1 (8.5-10.1) mg/dL Magnesium 2.1 (1.8-2.4) mg/dL Total Bilirubin 0.4 (0.2-1.0) mg/dL AST 19 (15-37) IU/L ALT 27 (14-63) IU/L Alkaline Phosphatase 88 (46-116) U/L Total Protein 7.1 (6.4-8.2) g/dL Albumin 3.8 (3.4-5.0) g/dL Globulin 3.3 (2.6-4.0) g/dL Albumin/Globulin Ratio 1.2 (0.9-1.6) Result Diagrams: 01/14/20 10:32 01/14/20 10:32 Sepsis Event Note - Evaluation Sepsis Screening Result: No Definite Risk - Focused Exam Vital Signs: Vital Signs Temp Pulse Resp BP Pulse Ox 01/14/20 13:01 97.7 F 54 L 16 149/84 H 95 01/14/20 11:22 57 L 19 96 01/14/20 11:04 55 L 25 H 136/86 100 Date Exam was Performed: 01/14/20 Time Exam was Performed: 13:57 - Problem List (1) Concussion with less than 1 hour loss of consciousness SNOMED Code(s): 306972806 ICD Code: S06.0X9A - CONCUSSION W LOSS OF CONSCIOUSNESS OF UNSP DURATION, INIT Status: Acute Current Visit: No (2) Blunt head trauma SNOMED Code(s): 13777347, 317881909 ICD Code: S09.8XXA - OTHER SPECIFIED INJURIES OF HEAD, INITIAL ENCOUNTER Status: Acute Current Visit: Yes Qualifiers: Encounter type: initial encounter Qualified Code(s): S09.8XXA - Other specified injuries of head, initial encounter (3) HLD (hyperlipidemia) SNOMED Code(s): 93507142 ICD Code: E78.5 - HYPERLIPIDEMIA, UNSPECIFIED Status: Chronic Current Visit: Yes (4) Complicated migraine SNOMED Code(s): 681905242 ICD Code: G43.109 - MIGRAINE WITH AURA, NOT INTRACTABLE, W/O STATUS MIGRAINOSUS Status: Chronic Current Visit: Yes (5) Hx of multiple concussions SNOMED Code(s): 83203874082108364 ICD Code: Z87.820 - PERSONAL HISTORY OF TRAUMATIC BRAIN INJURY Status: Chronic Current Visit: Yes Problem List Initiated/Reviewed/Updated: Yes Orders Last 24hrs: Active Orders 24 hr Category Date Time Status Admission Status [Patient Status] [ADT] Stat ADT 01/14/20 12:18 Active Antiembolic Devices [RC] PER UNIT ROUTINE Care 01/14/20 13:25 Active Intake and Output [RC] QSHIFT Care 01/14/20 13:24 Active Neuro Check [RC] Q4H Care 01/14/20 13:29 Active Orthostatic Vital Signs [RC] ASDIRECTED Care 01/14/20 12:17 Active Oxygen Therapy [RC] PRN Care 01/14/20 13:24 Active Up With Assistance [RC] ASDIRECTED Care 01/14/20 13:24 Active VTE/DVT Education [RC] PER UNIT ROUTINE Care 01/14/20 13:24 Active Vital Signs [RC] Q4H Care 01/14/20 13:24 Active Regular Diet [DIET] Diet 01/14/20 Lunch Active UA W/ABHIJIT RFLX IF INDICATED [URIN] Stat Lab 01/14/20 10:40 Ordered Acetaminophen [Tylenol] Med 01/14/20 13:24 Ordered 650 mg PO Q4H PRN Ibuprofen [Motrin] Med 01/14/20 13:37 Ordered 400 mg PO Q6H PRN Ondansetron [Zofran] Med 01/14/20 13:24 Ordered 4 mg IVPUSH Q4H PRN Sodium Chloride 0.9% [Saline Flush] Med 01/14/20 13:24 Ordered 2.5 ml FLUSH ASDIRECTED PRN Saline Lock Insert [OM.PC] Routine Oth 01/14/20 13:24 Ordered Sequential Compression Device [OM.PC] Per Unit Routine Oth 01/14/20 13:24 Ordered Resuscitation Status Routine Resus Stat 01/14/20 13:24 Ordered Medication Orders Acetaminophen (Tylenol) 650 mg PO Q4H PRN PRN Reason: Pain (mild 1-3) Ibuprofen (Motrin) 400 mg PO Q6H PRN PRN Reason: Headache Ondansetron HCl (Zofran) 4 mg IVPUSH Q4H PRN PRN Reason: Nausea Sodium Chloride (Saline Flush) 2.5 ml FLUSH ASDIRECTED PRN PRN Reason: Keep Vein Open Assessment/Plan Comment:: This 59 year old male admitted with mechanical fall with LOC after hitting his head with subsequent concussion 1. Mechanical fall with LOC after hitting head - Reports he slipped on the ice. - Monitor on telemetry - Neuro checks Q4 hours, notify MD if changes - Tylenol and Ibuprofen for headache PRN - Up ambulating with assistance. .2. HLD: - Continue statin 3. Complicated Migraines: - On Propranolol, HR is normally in 50s. Denies dizziness or lightheadedness normally. VTE prophylaxis: SCDs Code Status: Full Dispo: 1 day - Mortality Measure Prognosis:: Good
== END 2020-01-14 20:00 | disposition home or self-care (01) ==
LOC: MW.ED 10:35 → MW.MS 12:18
PROVIDERS: ADMIT Internal Medicine; ATTEND Internal Medicine
DX: S06.0X1A Concussion with loss of consciousness of 30 minutes or less, initial encounter (principal); S20.229A Contusion of unspecified back wall of thorax, initial encounter; E78.5 Hyperlipidemia, unspecified; G43.109 Migraine with aura, not intractable, without status migrainosus; E78.00 Pure hypercholesterolemia, unspecified; E03.9 Hypothyroidism, unspecified; E66.9 Obesity, unspecified; Z79.890 Hormone replacement therapy; Z79.82 Long term (current) use of aspirin; Z79.899 Other long term (current) drug therapy; Z87.820 Personal history of traumatic brain injury; Z68.39 Body mass index [BMI] 39.0-39.9, adult; W00.9XXA Unspecified fall due to ice and snow, initial encounter; Y93.01 Activity, walking, marching and hiking; Y92.89 Other specified places as the place of occurrence of the external cause; Y99.0 Civilian activity done for income or pay
CPT/HCPCS: 36415; 70450; 71045; 72125; 72131; 80053; 81003; 83735; 85025; 85610; 99285; A9270; G0378

== ENCOUNTER 2023-11-09 12:13 | Day surgery (SDC) | payer BC, OTHER ==
[2023-11-09] MEDS ORDERED: Lactated Ringers 1,000 ML IV SCH (12:15)
[2023-11-09] MEDS ORDERED: Naloxone 0.4 MG/ML SDV IVPUSH PRN ×2 (12:43→13:04)
[2023-11-09] MEDS ORDERED: HYDROmorphone 2 MG/ML Syringe IVPUSH SCH (12:45)
[2023-11-09] MEDS ORDERED: Propofol 200 MG/20 ML SDV ONE (12:48)
[2023-11-09] MEDS ORDERED: fentaNYL 100 MCG/2 ML SDV ONE (12:48)
[2023-11-09] MEDS ORDERED: Morphine 2 MG/ML SYRINGE IVPUSH PRN (13:04)
[2023-11-09] MEDS ORDERED: Ondansetron 4 MG/2 ML SDV IVPUSH PRN (13:04)
[2023-11-09] MEDS ORDERED: Metoclopramide 10 MG/2 ML SDV IVPUSH PRN (13:04)
[2023-11-09] MEDS ORDERED: Albuterol 0.083% 2.5 MG/3 ML Neb Soln NEB PRN (13:04)
[2023-11-09] MEDS ORDERED: droPERidol 5 MG/2 ML SDV IVPUSH PRN (13:04)
[2023-11-09] MEDS ORDERED: HYDROmorphone 1 MG/ML Syringe IVPUSH PRN (13:04)
[2023-11-09] MEDS ORDERED: fentaNYL 50 MCG/ML SDV IVPUSH PRN (13:04)
[2023-11-09] MEDS ORDERED: Bupivacaine 0.5% 30 ML SDV ONE (14:14)
[2023-11-09] MEDS ORDERED: ceFAZolin 2 GM Vial ONE (14:21)
[2023-11-09] MEDS ORDERED: ceFAZolin 1 GM Vial ONE (14:29)
== END 2023-11-09 16:14 | disposition home or self-care (01) ==
LOC: MW.SDS 12:13
PROVIDERS: ATTEND Surgery
DX: J90 Pleural effusion, not elsewhere classified (principal); Z96.89 Presence of other specified functional implants; E78.00 Pure hypercholesterolemia, unspecified; E03.9 Hypothyroidism, unspecified; E66.9 Obesity, unspecified; Z68.36 Body mass index [BMI] 36.0-36.9, adult; Z87.891 Personal history of nicotine dependence; Z79.890 Hormone replacement therapy; Z79.899 Other long term (current) drug therapy
CPT/HCPCS: 32552; 71045; J0665; J0690; J1170; J2704; J3010; J7120

== ENCOUNTER 2025-05-14 06:28 | Day surgery (SDC) | payer BC ==
[~2025-05-14 06:28] MED LIST: Sodium Chloride 0.9% 10 ML Syringe FLUSH PRN; Sodium Chloride 0.9% 2.5 ML Syringe FLUSH PRN
[2025-05-14] MEDS: Lactated Ringers 1,000 ML IV SCH (07:11)
[2025-05-14] MEDS ORDERED: Propofol 200 MG/20 ML SDV ONE (07:37)
[2025-05-14] MEDS ORDERED: dexmedeTOMIDine HCl 200 MCG/2 ML SDV ONE (07:38)
== END 2025-05-14 08:58 | disposition home or self-care (01) ==
LOC: MW.SDS 06:28
PROVIDERS: ATTEND Surgery
DX: K29.50 Unspecified chronic gastritis without bleeding (principal); K31.89 Other diseases of stomach and duodenum; K20.0 Eosinophilic esophagitis; R05.3 Chronic cough; K44.9 Diaphragmatic hernia without obstruction or gangrene; E03.9 Hypothyroidism, unspecified; E78.00 Pure hypercholesterolemia, unspecified; E66.9 Obesity, unspecified; I10 Essential (primary) hypertension; Z68.38 Body mass index [BMI] 38.0-38.9, adult; Z91.041 Radiographic dye allergy status; Z79.899 Other long term (current) drug therapy; Z79.890 Hormone replacement therapy; Z87.891 Personal history of nicotine dependence
CPT/HCPCS: 43239; J2704; J7120; 00731